=== PATIENT | male | born 1955 | race Native Hawaiian/Other Pacific Islander ===

== ENCOUNTER 2018-01-14 16:32 | Emergency (ER) | payer OTHER ==
[~2018-01-14] VITALS: Ht 175.3 cm; Wt 83.9 kg
[~2018-01-14 16:32] MED LIST: LISI10TA11 PO
[2018-01-14 20:35] VITALS: BP 179/98; TEMP 98.3
== END 2018-01-14 20:37 | disposition home or self-care (01) ==
LOC: ED 16:32
PROC: 0HQFXZZ Repair Right Hand Skin, External Approach (ICD-10-PCS; principal; 2018-01-14)
DX: S61.210A Laceration without foreign body of right index finger without damage to nail, initial encounter (principal); W45.8XXA Other foreign body or object entering through skin, initial encounter
CPT/HCPCS: 99283

== ENCOUNTER 2021-08-29 11:32 | Emergency (ER) | payer OTHER ==
[~2021-08-29] VITALS: Ht 175.3 cm; Wt 83.9 kg
[2021-08-29 11:45] VITALS: BP 126/70; TEMP 97.6
[2021-08-29 12:13] LABS: PLATELET COUNT 286 K/uL (142-355)
[2021-08-29 12:23] LABS: POTASSIUM 4.4 mmol/L (3.6-5.2)
== END 2021-08-29 13:11 | disposition home or self-care (01) ==
LOC: ED 11:32
PROVIDERS: Emergency Medicine Emergency Medical Services
DX: U07.1 COVID-19 (principal); J20.9 Acute bronchitis, unspecified
CPT/HCPCS: 80048; 81002; 84484; 85027; 85379; 93005; 96360; 99284